=== PATIENT | female | born 1995 | race Caucasian/White ===

== ENCOUNTER 2016-07-23 21:43 | Inpatient (IN) | payer MEDICAID ==
[~2016-07-23] VITALS: Ht 147.3 cm; Wt 54.5 kg
[2016-07-23] MEDS ORDERED: LACTATED RINGER'S 1,000 ML IV SCH (21:49)
[2016-07-23] MEDS ORDERED: LACTATED RINGER'S 1,000 ML IV PRN (21:50)
[2016-07-23 21:54] VITALS: BP 139/90; PULSE 86; RESP 18; Ht 147.3 cm; Wt 54.5 kg
[2016-07-23] MEDS ORDERED: PRENAT PO (21:59)
[2016-07-23] MEDS ORDERED: MISOPROSTOL 200 MCG TAB PR PRN (22:00)
[2016-07-23] MEDS ORDERED: LIDOCAINE 1% (MPF) 30 ML INJ INJ PRN (22:00)
[2016-07-23] MEDS ORDERED: OXYTOCIN 30 UNITS/LR 500 ML IV PRN (22:00)
[2016-07-23] MEDS ORDERED: CARBOPROST 250 MCG INJ IM PRN (22:00)
[2016-07-23] MEDS ORDERED: METHYLERGONOVINE 0.2 MG INJ IM PRN (22:00)
[2016-07-23 22:11] LABS: ADD SCAN DIFF NO
[2016-07-23 22:13] LABS: BASOPHILS % 0.2 % (0.0-2.0); EOSINOPHILS # 0.1 10^3/ul (0.0-0.5); EOSINOPHILS % 0.7 % (0.0-7.0); HEMOGLOBIN 10.5 g/dl (12.0-16.0); LYMPHOCYTES # 1.9 10^3/ul (0.8-2.9); LYMPHOCYTES % 22.3 % (15.0-51.0); MEAN CORPUSCULAR HGB CONC 33.9 g/dl (32.0-37.0); MEAN CORPUSCULAR VOLUME 85.6 fl (82.0-101.0); MEAN PLATELET VOLUME 10.7 fl (7.4-10.4); MONOCYTE # 0.5 10^3/ul (0.3-0.9); MONOCYTES % 5.7 % (0.0-11.0); NEUTROPHIL # 6.1 10^3/ul (1.6-7.5); NEUTROPHILS % 70.6 % (39.0-77.0); PLATELET COUNT 421 10^3/UL (140-415); RED BLOOD COUNT 3.62 10^6/ul (4.20-5.40); RED CELL DISTRIBUTION WIDTH 13.4 % (11.5-14.5); WHITE BLOOD COUNT 8.6 10^3/ul (4.8-10.8)
[2016-07-23 22:28] LABS: INR 0.83; PROTIME 11.4 Sec (12.2-14.2); PT RATIO 0.9
[2016-07-23 22:29] LABS: PARTIAL THROMBOPLASTIN TIME 24.6 Sec (25.0-35.0)
[2016-07-23] MEDS ORDERED: OXYTOCIN 30 UNITS/LR 500 ML IV SCH ×2 (22:30)
[2016-07-23] MEDS ORDERED: IBUPROFEN 600 MG TAB PO PRN (22:30)
[2016-07-23] MEDS ORDERED: BUTORPHANOL 2 MG INJ IV PRN ×2 (22:30)
[2016-07-23] MEDS ORDERED: ACETAMINOPHEN/CODEINE #3 TAB PO PRN (22:30)
[2016-07-23 22:34] LABS: BARBITURATES Negative (NEGATIVE); BENZODIAZEPINES Negative (NEGATIVE); CANNABINOIDS Negative (NEGATIVE); COCAINE Negative (NEGATIVE); OPIATES Negative (NEGATIVE)
[2016-07-23 22:35] LABS: ALBUMIN 3.3 g/dl (3.3-4.9); POTASSIUM 4.5 mmol/L (3.5-5.1)
[2016-07-23 22:37] LABS: BILIRUBIN,INDIRECT 0.1 mg/dl (0-1.1); BILIRUBIN,TOTAL 0.1 mg/dl (0.2-1.3); CREATININE 1.72 mg/dl (0.44-1.00)
[2016-07-23 22:38] LABS: ALBUMIN/GLOBULIN RATIO 1.06; TOTAL PROTEIN 6.4 g/dl (6.1-8.1)
--- NOTE | 2016-07-23 22:52 | RADRPT ---
PROCEDURE: US OB ESTIMATED WEIGHT. CLINICAL INDICATION: Pain. TECHNIQUE: Multiple sonographic images of the pelvis were obtained. The images were reviewed on a PACS workstation. COMPARISON: No pertinent prior examinations were submitted for comparison. FINDINGS: There is a single live intrauterine gestation. Cardiac activity is present with 131 beats per minut e. There is a vertex presentation. Measurements were made in order to determine age. The results are as follows: AC =32.1 cm = 36 weeks 0 days FL =7.1 cm = 36 weeks 2 days Head circumference and biparietal diameter cannot be obtained due to active labor. Estimated gestational age of approximately 36 weeks 1 day. The estimated date of delivery is 08/19/2016. The EFW = 2890 g. AST 8.8% This examination was not performed for anatomy. The placenta is anterior. The placenta is grade II in appearance. There is no evidence for an abrup tion or placenta previa. IMPRESSION: EFW = 2890 g. RPTAT: HIKT .Odell Cole MD, MD Date Time Electronically viewed and signed by .Odell Cole MD, on 07/23/2016 22:52 .T/
--- NOTE | 2016-07-23 23:12 | TRIAGE ---
OB Triage Datetime Report Generated by CPN: 07/23/2016 23:11 Datetime: 07/23/2016 22:46 Monitor Mode: External US Datetime: 07/23/2016 22:41 Vaginal Exam Dilatation (cms): 10.0 Effacement (%): 100 Station: 1 Exam By: DGS RN Vaginal Bleeding: Normal Show Datetime: 07/23/2016 22:39 Stage of : OB Triage Datetime: 07/23/2016 22:38 Vaginal Exam Dilatation (cms): 9.0 Effacement (%): 100 Station: 0 Exam By: WALKER BLANCO Membrane Status: Ruptured Membranes Rupture Method: Spontaneous Amniotic Fluid Color: Heavy Meconium Amniotic Fluid Amount: Moderate Vaginal Bleeding: Normal Show Cervix, Consistency: Soft Datetime: 07/23/2016 22:28 Comments: U/S OFF Datetime: 07/23/2016 22:18 Interventions: IV Bolus Decelerations: Late Category: Category II Datetime: 07/23/2016 22:15 Monitor Mode: External US Comments: picking up maternal heart rate, pulse ox applied Datetime: 07/23/2016 22:10 Vaginal Exam Dilatation (cms): 7.5 Effacement (%): 100 Station: -1 Exam By: WALKER BLANCO Vaginal Bleeding: Normal Show Cervix, Consistency: Soft Cervix, Position: Midposition Presentation 'A': Cephalic Datetime: 07/23/2016 22:02 Time of Arrival: 07/23/2016 22:02 EGA: 39.2 Arrived By: Stretcher Arrived From: TRIAGE Datetime: 07/23/2016 22:01 Vaginal Exam Dilatation (cms): 7.0 Datetime: 07/23/2016 22:00 Labor Evaluation Frequency: 2-3 Monitor Mode: External Duration (sec)2399: 40-70 Quality: Mild Pattern: Normal: <= 5 Contractions in 10 Minutes Resting Tone [place]: Relaxed Heart Rate FHR Baseline Rate: 125 Monitor Mode: External US FHR Baseline Changes: No Baseline Change Variability: Moderate 6-25 bpm Accelerations: 15X15 Decelerations: None Category: Category I Datetime: 07/23/2016 21:57 Stage of : Labor EGA: 39.2 Datetime: 07/23/2016 21:48 Membrane Status: Intact Datetime: 07/23/2016 21:47 Vaginal Exam Dilatation (cms): 5.0 Datetime: 07/23/2016 21:45 Stage of : OB Triage Maternal Assessment Level of Consciousness: Fully Conscious DTR's/Clonus: DTRs 2+; No Clonus Headache: Denies Blurred Vision: No Respiratory Effort: Unlabored; Regular Rhythm; Equal Expansion Breath Sounds, Left: Clear and Equal Breath Sounds, Right: Clear and Equal Nausea/Vomiting: Denies RUQ Epigastric Pain: Denies Lower Extremities Edema: None Degree: None Upper Extremities Edema: None Degree: None Facial Edema: None Temperature Route: Oral Fall Risk Assessment History of Falling: (0) No Secondary Diagnosis: (0) No Ambulatory Aid: (0) Bedrest/Nurse Assist IV Therapy: (0) No Gait: (0) Normal/Bedrest/Immobile Mental Status: (0) Oriented to Own Ability Fall Score: 0 Fall Risk Score Definition: No Risk: No action required Monitor Mode: External Monitor Mode: External US Pain Assessment Pain Scale: 9 Pain Presence: Intermittent Pain Type: Contraction Pain Location: Abdomen; Perineum Datetime: 07/23/2016 21:44 Stage of : OB Triage Vaginal Exam Dilatation (cms): 7.0 Effacement (%): 80 Station: -3 Exam By: A TAM Membrane Status: Intact Datetime: 07/23/2016 21:30 Stage of : OB Triage Time of Arrival: 07/23/2016 21:21 Arrived By: Wheelchair Arrived From: Home Chief Complaint: NANCY SINCE 1800 Movement: Present Contractions: Irregular Time Contractions Began: 07/23/2016 18:00 Rupture of Membranes: Denies Vaginal Bleeding: None Vaginal Discharge: Denies Recent Sexual Intercouse: Denies Abdominal Trauma: Not Applicable Patient Complaints: None Time Provider Notified: 07/23/2016 22:11 Provider Notified: DR GILLIAM Initial Plan: CALL , EFM Maternal Assessment Level of Consciousness: Fully Conscious DTR's/Clonus: DTRs 2+; No Clonus Headache: Denies Breath Sounds, Left: Clear and Equal Breath Sounds, Right: Clear and Equal Nausea/Vomiting: Denies RUQ Epigastric Pain: Denies Temperature Route: Oral Monitor Mode: External Monitor Mode: External US Pain Assessment Pain Scale: 6 Pain Presence: Intermittent Pain Type: Contraction Pain Location: Abdomen; Perineum
--- NOTE | 2016-07-23 23:32 | HP ---
Date/Time of Note Date/Time of Note DATE: 07/23/16 TIME: 23:28 OB - History Hx of Present Free Text/Dictation Pt is a 21yo at 39+2 by reported EDC who presented to triage c/o painful UCs since 1800. Reports normal FM, denies LOF or VB. Hx of 4yrs ago w/o complications Care: Limited Care (Last seen in the clinic in May) Past Family/Social History * records not available GBS Status: Unknown OB Admission Exam Vital Signs Vital Signs Vital Signs Date Time Temp Pulse Resp B/P Pulse Ox O2 Delivery O2 Flow Rate FiO2 07/23/16 21:54 98.0 86 18 139/90 Room Air Physical Exam HEENT: WNL Heart: Rhythm Normal Lungs: Clear Abdomen: WNL Extremities: Normal Cervical Dilatation: 7cm Effacement: Other (80%) Station: -3 Membranes: Intact Heart Rate: 120's Accelerations: Accelerations Present Decelerations: Late Decelarations (x1) Varibility: Moderate Contractions on Admission: < 5 Minutes Apart Intensity: Firm Last 72 hours Lab Results CBC & BMP 07/23/16 21:45 07/23/16 22:00 Liver Function Test 07/23/16 22:00 Alanine Aminotransferase (ALT/SGPT) 27 Albumin 3.3 Alkaline Phosphatase 195 H Aspartate Amino Transf (AST/SGOT) 22 Direct Bilirubin 0.00 Total Protein 6.4 OB Assessment/Plan Reason for admission: active labor Plan: Expectant Management Other plan: Admit to L&D labs ordered GBS unknown- will manage per Risk-based protocol thus ppx not indicated at this time FWB overall reassuring Pt declines pain meds Anticipate EMETERIO RODRÍGUEZ MD Jul 23, 2016 23:32
[2016-07-23] MEDS: LACTATED RINGER'S 1,000 ML IV* SCH (23:35)
--- NOTE | 2016-07-23 23:35 | LDN ---
Date/Time of Note Date/Time of Note DATE: 07/23/16 TIME: 23:32 Delivery Summary Pt pushed without anesthesia over a sterile field to an of a liveborn 2920g female infant with Apgars of 9/9 at 1 and 5 min respectively. Easy delivery of the head followed by anterior and posterior shoulders and the remainder of the body. Given particulate meconium noted on SROM immediately prior to delivery, the infant was not stimulated although had a spontaneous cry. The cord was double clamped and cut and quickly taken to the warmer for eval by RT. A cord segment and cord blood were collected and 3rd stage Pitocin was administered. An intact 3VC placenta delivered shortly thereafter. Fundal massage noted a firm fundus. No lacerations were seen on examination of the vagina and perineum EBL 150ml. Mother and infant recovering well in LDR following delivery. Placenta Delivered: Spontaneously Meconium: Particulate Perineum intact?: Yes Anesthesia type: None Estimated blood loss: 150 Sponge & Needle done & correct: Yes All needle counts correct: Yes Any foreign bodies felt in the: No Problems: Infant Delivery Information Sex Infant Sex: female Apgars 1 Minute: 9 5 Minute: 9 Suctioning Nose & mouth suctioned at heather: No Delee suction performed: Yes (no return per RT) Umbilical Cord Umbilical cord with: 3 Vessels Cord presentations: no nuchal cord Cord Blood was obtained: Yes Mother & Baby Disposition Disposition Mom & Baby to Maternity; Good: Yes Baby to NICU: No EMETERIO GILLIAM MD Jul 23, 2016 23:35
--- NOTE | 2016-07-23 23:42 | QN ---
Documentation Comment Laborist Pt with initially elevated BP (139/90) in triage in the setting of contraction pain. Pt asymptomatic. On transfer to R BP 131/80. On review of labs, Cr noted to be elevated at 1.72. Labs otherwise wnl except for mild anemia, Hgb 105 and plts of 421. Unclear etiology of TRISTAN however in the setting of elevated BP, will send a cath urine specimen to the lab to evaluate for protein and specific gravity. Repeat CMP in AM with CBC. EMETERIO GILLIAM MD Jul 23, 2016 23:42
[2016-07-24] MEDS ORDERED: SENNA/DOCUSATE NA (8.6MG/50MG) TAB PO PRN
[2016-07-24] MEDS ORDERED: MISOPROSTOL 200 MCG TAB PR PRN
[2016-07-24] MEDS ORDERED: LANOLIN 7 GM TUBE TOP PRN
[2016-07-24] MEDS ORDERED: ONDANSETRON 4 MG INJ IV PRN
[2016-07-24] MEDS ORDERED: DIBUCAINE 1% 30 GM OINT PR PRN
[2016-07-24] MEDS ORDERED: METHYLERGONOVINE 0.2 MG INJ IM PRN
[2016-07-24] MEDS ORDERED: OXYTOCIN 30 UNITS/LR 500 ML IV PRN
[2016-07-24] MEDS ORDERED: DIPHENHYDRAMINE 50 MG INJ IV PRN
[2016-07-24] MEDS ORDERED: ACETAMINOPHEN 325 MG TAB PO PRN
[2016-07-24] MEDS ORDERED: CARBOPROST 250 MCG INJ IM PRN
[2016-07-24] MEDS ORDERED: BENZOCAINE 20% 56 ML SPRAY TOP PRN
[2016-07-24 00:03] LABS: ADD UMIC YES; URINE BILIRUBIN (Dip) NEGATIVE (NEGATIVE); URINE BLOOD (Dip) 3+ (NEGATIVE); URINE COLOR LT. YELLOW (YELLOW); URINE GLUCOSE (Dip) NEGATIVE (NEGATIVE); URINE KETONES (Dip) NEGATIVE (NEGATIVE); URINE LEUKOCYTE ESTERASE (Dip) NEGATIVE (NEGATIVE); URINE NITRITE (Dip) NEGATIVE (NEGATIVE); URINE TOTAL PROTEIN (Dip) 4+ (NEGATIVE); URINE UROBILINOGEN (Dip) 0.2 E.U./dL (0.1-1.0)
[2016-07-24 00:15] LABS: BACTERIA,URINE FEW; SQUAMOUS EPITHELIAL CELL,UR FEW
[2016-07-24 01:40] VITALS: BP 133/75; PULSE 82; RESP 20
[2016-07-24 04:00] VITALS: BP 127/55; PULSE 80; RESP 18
[2016-07-24] MEDS: LACTATED RINGER'S 1,000 ML IV* SCH (04:04)
[2016-07-24] MEDS: IBUPROFEN 600 MG TAB PO SCH ×4 (06:00→18:09)
[2016-07-24 07:30] VITALS: BP 119/74; PULSE 72; RESP 18
[2016-07-24 07:36] LABS: ADD SCAN DIFF NO
[2016-07-24 07:43] LABS: BASOPHILS % 0.1 % (0.0-2.0); EOSINOPHILS % 0.1 % (0.0-7.0); HEMATOCRIT 27.5 % (37.0-47.0); HEMOGLOBIN 9.2 g/dl (12.0-16.0); LYMPHOCYTES # 1.4 10^3/ul (0.8-2.9); LYMPHOCYTES % 12.9 % (15.0-51.0); MEAN CORPUSCULAR HEMOGLOBIN 29.1 pg (29.0-33.0); MEAN CORPUSCULAR HGB CONC 33.5 g/dl (32.0-37.0); MEAN PLATELET VOLUME 10.8 fl (7.4-10.4); MONOCYTE # 0.5 10^3/ul (0.3-0.9); MONOCYTES % 5.2 % (0.0-11.0); NEUTROPHIL # 8.5 10^3/ul (1.6-7.5); NEUTROPHILS % 81.2 % (39.0-77.0); PLATELET COUNT 329 10^3/UL (140-415); RED BLOOD COUNT 3.16 10^6/ul (4.20-5.40); RED CELL DISTRIBUTION WIDTH 13.5 % (11.5-14.5); WHITE BLOOD COUNT 10.4 10^3/ul (4.8-10.8)
[2016-07-24 08:05] LABS: ALBUMIN 2.6 g/dl (3.3-4.9); POTASSIUM 4.4 mmol/L (3.5-5.1)
[2016-07-24 08:08] LABS: CALCIUM 8.9 mg/dl (8.4-10.2); CREATININE 1.49 mg/dl (0.44-1.00); TOTAL PROTEIN 5.2 g/dl (6.1-8.1)
[2016-07-24 12:00] VITALS: BP 131/81; PULSE 86; RESP 20
--- NOTE | 2016-07-24 13:20 | PN ---
Date/Time of Note Date/Time of Note DATE: 07/24/16 TIME: 13:19 OB Subjective Subjective Subjective day 1 Afebrile abdomen soft uterus firm lochia normal extremity normal ambulation recommended ALL MILES MD Jul 24, 2016 13:20
[2016-07-24 16:00] VITALS: BP 129/73; PULSE 73; RESP 20
[2016-07-24] MEDS ORDERED: INFLUENZA VIRUS VACCINE 0.5 ML (DISPENSING) IM* ONE (17:00)
[2016-07-24 20:10] VITALS: BP 139/79; PULSE 68; RESP 18
[2016-07-25] MEDS: IBUPROFEN 600 MG TAB PO SCH ×3 (00:13→11:56)
[2016-07-25 04:30] VITALS: BP 135/79; PULSE 69; RESP 18
[2016-07-25 08:15] VITALS: BP 123/68; PULSE 69; RESP 17
[2016-07-25] MEDS ORDERED: DIPHTH/TET/ACEL PERTUSS (ADULT) 0.5 ML VIAL IM* ONE (09:00)
[2016-07-25] MEDS ORDERED: INFLUENZA VIRUS VACCINE 0.5 ML (DISPENSING) IM* ONE (09:00)
--- NOTE | 2016-07-25 10:10 | DS ---
Date/Time of Note Date/Time of Note DATE: 07/25/16 TIME: 10:07 Obstetrical Discharge Record Final Diagnosis Final Diagnosis: Term delivered Vaginal Delivery Obstetrical Delivery: Spontaneous Condition on Discharge Physical Assessment Last Vitals: PPD/2 AFEBRILE ABDOMEN SOFT ,LOCHIA NORMAL EXT NORMAL DISCHARGED HOME WITH INSTRUCTION TO MAKE APPOINTMENT IN 2 WEEKS Chemistry Test 07/23/16 23:45 07/24/16 06:45 Uric Acid 8.0mg/dl (3.1-7.9) H Alanine Aminotransferase (ALT/SGPT) 28IU/L (13-69) Albumin 2.6g/dl (3.3-4.9) L Albumin/Globulin Ratio 1.00 Alkaline Phosphatase 152IU/L (42-121) H Anion Gap 11 (8-16) Aspartate Amino Transf (AST/SGOT) 26IU/L (15-46) Blood Urea Nitrogen 18mg/dl (7-20) Calcium Level 8.9mg/dl (8.4-10.2) Carbon Dioxide Level 19mmol/L (21-31) L Chloride Level 110mmol/L (97-110) Creatinine 1.49mg/dl (0.44-1.00) H Direct Bilirubin 0.00mg/dl (0.00-0.20) Globulin 2.60g/dl (1.3-3.2) Glucose Level 87mg/dl (70-220) Indirect Bilirubin 0.0mg/dl (0-1.1) Potassium Level 4.4mmol/L (3.5-5.1) Sodium Level 136mmol/L (135-144) Total Bilirubin 0.0mg/dl (0.2-1.3) L Total Protein 5.2g/dl (6.1-8.1) #L Bowel Movement: Yes Fundus: Firm Calf Tenderness: No Patient Condition: Good ALL MILES MD Jul 25, 2016 10:10
[2016-07-25 19:54] LABS: RUBELLA ANTIBODY - IGG 3.76
== END 2016-07-25 16:05 | disposition home or self-care (01) | DRG 775 ==
LOC: OBT 21:43 → L-D 21:44 → OBT 21:50 → PP1 07-24 01:42
PROVIDERS: ADMIT Obstetrics & Gynecology; ATTEND Obstetrics & Gynecology
PROC: 10E0XZZ Delivery of Products of Conception, External Approach (ICD-10-PCS; principal; 2016-07-23)
DX: O80 Encounter for full-term uncomplicated delivery (principal); Z37.0 Single live birth; Z3A.39 39 weeks gestation of pregnancy
CPT/HCPCS: 36415; 76815; 80053; 80307; 81001; 81003; 84560; 85025; 85610; 85730; 86592; 86703; 86762; 86900; 86901; 87086; 87340; 90686; 90715; 99464; A4310; G0463; J2590; J7120

== ENCOUNTER 2018-05-13 00:50 | Inpatient (IN) | END 2018-05-18 00:45 | disposition home or self-care (01) | DRG 805 ==